=== PATIENT | female | born 1965 | race Caucasian/White ===

== ENCOUNTER → 2023-08-21 14:06 | Outpatient (REF) | payer OTHER, SELFPAY | LOC: HWWDC 14:06 | PROVIDERS: ATTENDING PHYSICIAN Internal Medicine | DX: Z12.31 Encounter for screening mammogram for malignant neoplasm of breast (principal) | CPT/HCPCS: 77063; 77067 ==

== ENCOUNTER → 2024-12-03 14:47 | Outpatient (REF) | payer OTHER, SELFPAY | LOC: WDC 14:47 | PROVIDERS: ATTENDING PHYSICIAN Internal Medicine | DX: Z12.31 Encounter for screening mammogram for malignant neoplasm of breast (principal) | CPT/HCPCS: 77063; 77067 ==